=== PATIENT | male | born 1970 | race American Indian/Alaskan Native ===

== ENCOUNTER 2018-12-14 11:40 | Outpatient (CLI) | payer BC ==
--- NOTE | 2018-12-14 12:14 | XRay Report ---
Left elbow-2 views INDICATION: MAIN: PAIN IN RT ELBOW PT SD PAIN X3 MONTHS FROM EXTENSIVE WORKING OUT. ALSO STATES FE LL X3 WKS AGO..JTS. COMPARISON: None. IMPRESSION: There is a 1.1 cm crescentic calcific density along the posterior aspect of the elbow wh ich has the appearance of a bone fragment and may represent an avulsion fracture from the olecranon w ith triceps tendon tear. There is also considerable overlying soft tissue swelling. No other signifi cant abnormality or malalignment identified. Signer Name: Edgar Wallace MD Signed: 12/14/2018 12:10 PM Workstation Name: [id number]
== END 2018-12-14 11:41 | disposition home or self-care (01) ==
LOC: XRAY 11:40
PROVIDERS: ATTEND Internal Medicine
DX: M25.521 Pain in right elbow (principal)